=== PATIENT | male | born 1985 | race Caucasian/White ===

== ENCOUNTER 2021-01-03 10:02 | Outpatient (REF) | payer OTHER, SELFPAY ==
[2021-01-03 11:18] LABS: Anion Gap 12 (12-20); Blood Urea Nitrogen 16 mg/dL (9-16); Calcium 9.5 mg/dL (8.4-10.2); Carbon Dioxide 30 mmol/L (22-29); Chloride 106 mmol/L (96-108); Estimated Glomerular Filt Rate > 60; Glucose Fasting 96 mg/dL (60-99); Magnesium 2.3 mg/dL (1.6-2.6); Potassium 4.2 mmol/L (3.3-5.1); Sodium 144 mmol/L (135-145)
[2021-01-04 08:46] LABS: Lyme Abs Screen <0.90 index
== END 2021-01-03 10:03 | disposition home or self-care (01) ==
LOC: HO.LAB 10:02
PROVIDERS: Visit Provider Psychiatry & Neurology Neurology
DX: R25.3 Fasciculation (principal)
CPT/HCPCS: 36415; 80048; 83735; 84100; 86617; 86618

== ENCOUNTER 2021-03-27 13:24 | Outpatient (REF) | payer OTHER, SELFPAY ==
[2021-04-01 07:07] LABS: Arsenic, 24H Urine <10 mcg/L (<=80); Cadmium, 24H Urine <0.5 mcg/L (<=5.0); Lead, 24H Urine <10 mcg/L (<80); Mercury, 24H Urine <4 mcg/L (<=20)
== END 2021-03-27 13:25 | disposition home or self-care (01) ==
LOC: HO.LNP 13:24
PROVIDERS: Visit Provider Psychiatry & Neurology Neurology
DX: R25.3 Fasciculation (principal)
CPT/HCPCS: 82175; 82300; 83655; 83825